=== PATIENT | female | born 1950 | race Caucasian/White ===

== ENCOUNTER 2017-03-28 16:26 | Emergency (ER) | payer OTHER ==
[2017-03-28 16:51] VITALS: BP 170/74; PULSE 100; TEMP 99.6; BMI 27.4
[2017-03-28] MEDS ORDERED: LORazepam 1 MG TABLET PO ONE (17:05)
--- NOTE | 2017-03-28 17:06 | PDOC ---
History of Present Illness - History of Present Illness Initial Comments: 03/28/17 17:19 66 F with a PMHx of chronic back pain presents to the ED with severe back pain. She reports the pain radiates down her legs. Patient reports that she had a work -related injury in 1998 and since then has had chronic back pain. She has a pain management doctor. She states the medications no longer work and she has not been able to sleep due to the pain. Her daughter states that she hallucinates due to lack of sleep. The patient is an everyday smoker. She denies chest pain, SOB. Denies nausea, vomiting, diarrhea. Current Medications: Amlodipine, Venlafaxine, Hydrocodone/Acetaminophen 7.5/325 , Methadone, Xanax <Tova Doss - Last Filed: 03/28/17 18:50> <Ivan Da Silva - Last Filed: 03/29/17 09:02> - General Chief Complaint: Chronic pain Stated Complaint: BACK PAIN Time Seen by Provider: 03/28/17 16:44 Past History <Tova Doss - Last Filed: 03/28/17 18:50> - Past Medical History GI Disorders: Yes (HIATAL HERNIA) HTN: Yes Psychiatric Problems: Yes (MOOD DISORDER) Other medical history: CHRONIC BACK PAIN, NARCOTIC & METHADONE DEPENDENT - Surgical History Appendectomy: Yes - Psycho/Social/Smoking Cessation Hx Anxiety: Yes Suicidal Ideation: No Smoking Status: No Smoking History: Current every day smoker Number of Cigarettes Smoked Daily: 5 Information on smoking cessation initiated: Yes 'Breaking Loose' booklet given: 03/28/17 Hx Alcohol Use: No Drug/Substance Use Hx: Yes (PRESCRIBED) Substance Use Type: Prescribed <Ivan Da Silva - Last Filed: 03/29/17 09:02> - Past Medical History Allergies/Adverse Reactions: Allergies Allergy/AdvReac Type Severity Reaction Status Date / Time Penicillins Allergy Rash Verified 03/28/17 16:59 Home Medications: Ambulatory Orders Amlodipine Besylate [Norvasc] 10 mg PO DAILY 10/02/11 Venlafaxine HCl [Effexor] 225 mg PO DAILY 10/02/11 Methadone HCl 100 mg PO DAILY 03/28/17 Oxycodone HCl/Acetaminophen [Percocet 5-325 mg Tablet] 1 - 2 tab PO Q4H PRN #20 tablet MDD 8 03/28/17 Review of Systems - Review of Systems Comments:: 03/28/17 17:20 CONSTITUTIONAL: Absent: fever, chills, fatigue EYES: Absent: visual changes ENT: Absent: ear pain, sore throat CARDIOVASCULAR: Absent: chest pain, palpitations RESPIRATORY: Absent: cough, SOB GI: Absent: abdominal pain, nausea, vomiting, constipation, diarrhea GENITOURINARY: Absent: dysuria, frequency, hematuria MUSCULOSKELETAL: (+) back pain. Absent: arthralgia, myalgia SKIN: Absent: rash NEURO: Absent: headache <Lauren Dossobhan A - Last Filed: 03/28/17 18:50> *Physical Exam - Vital Signs Last Vital Signs Temp Pulse Resp BP Pulse Ox 99.6 F 100 H 18 170/74 97 03/28/17 16:27 03/28/17 16:27 03/28/17 16:27 03/28/17 16:27 03/28/17 16:27 - Physical Exam Comments: 03/28/17 18:50 GENERAL: Well-appearing, well-nourished. HEENT: Normocephalic, atraumatic. PERRL, EOM intact. CARDIOVASCULAR: Normal S1, S2. Regular rate and rhythm. PULMONARY: Clear to auscultation bilaterally. ABDOMEN: Soft, non-distended, non-tender. EXTREMITIES: Normal ROM in all four extremities. No gross deformities. BACK: patient indicates that she has upper back pain, but there is no deformity , point tenderness or spasm. No sign of inflammation is present. There is no pain or deformity of the low back. Straight leg test is negative. There are no motor or sensory deficits. No loss of rectal sphincter tone. SKIN: Warm, dry. No rash NEUROLOGICAL: No focal neurological deficits. <Lauren Dossobhan A - Last Filed: 03/28/17 18:50> - Vital Signs Last Vital Signs Temp Pulse Resp BP Pulse Ox 99.6 F 100 H 18 170/74 97 03/28/17 16:27 03/28/17 16:27 03/28/17 16:27 03/28/17 16:27 03/28/17 16:27 <Ivan Da Silva - Last Filed: 03/29/17 09:02> ED Treatment Course - LABORATORY CBC & Chemistry Diagram: 03/28/17 17:20 03/28/17 17:20 <Tova Doss - Last Filed: 03/28/17 18:50> - LABORATORY CBC & Chemistry Diagram: 03/28/17 17:20 03/28/17 17:20 <Ivan Da Silva - Last Filed: 03/29/17 09:02> Medical Decision Making - Medical Decision Making 03/28/17 17:09 Attempts were made to contact PMD and pain management physician. Staff at the PMD office states that the patient has not been seen since 2016. Pain management physician was not available. Since it is clear that the patient has no recent medical attention, is a long- time smoker with a chronic cough, according to her daughter, chest x-ray and routine lab work will be obtained. An attempt will be made to ameliorate her pain and anxiety with medication. Chest x-ray shows a large hiatal hernia, with suboptimal visualization of the left base. Otherwise the lung otoole are clear CBC and chemistries without significant abnormalities The patient was treated with oral oxycodone and Ativan. She obviously is tolerant of narcotics, due to methadone maintenance and chronic usage. She still complains of severe pain. Dilaudid was administered. This seemed to improve her pain. Discharge with her daughter, with instructions to follow-up with a sensor specialist for baseline evaluation due to her chronic smoking history. She will also follow up with her pain management physician and primary physician Dr. Moore. Patient is ambulatory and pain is improved with discharge in the company of her daughter <Ivan Da Silva - Last Filed: 03/29/17 09:02> *DC/Admit/Observation/Transfer - Attestations Scribe Attestion: 03/28/17 17:21 Documentation prepared by Tova Doss, acting as biomedical service engineer for Ivan Oneill MD. <Tova Doss - Last Filed: 03/28/17 18:50> - Discharge Dispostion Admit: No <Ivan Da Silva - Last Filed: 03/29/17 09:02> Diagnosis at time of Disposition: Chronic back pain Qualifiers: Back pain location: back pain in unspecified location Back pain laterality: unspecified Qualified Code(s): M54.9 - Dorsalgia, unspecified - Discharge Dispostion Disposition: HOME Condition at time of disposition: Good - Prescriptions Prescriptions: Oxycodone HCl/Acetaminophen [Percocet 5-325 mg Tablet] 1 - 2 tab PO Q4H PRN #20 tablet MDD 8 PRN Reason: Severe Pain - Referrals Referrals: Matt Moore MD [Primary Care Provider] - 3 days Lui Mosley MD [Staff Physician] - 3 days Kuldeep Jamison MD [Staff Physician] - 14 days - Patient Instructions Printed Discharge Instructions: Thoracic Back Pain Additional Instructions: Your lab work and chest x-ray did not show anything specific, but since she or a smoker with a chronic cough, it is recommended that you see a sensor specialist within the next 1-2 weeks for further evaluation and treatment..
[2017-03-28] MEDS ORDERED: LORazepam 0.5 MG TABLET ONE (17:08)
[2017-03-28 17:30] LABS: BASOPHIL 0.3 % (0-2.0); EOSINOPHIL 1.5 % (0-4.5); MCH 29.7 pg (25.7-33.7); MCHC 35.1 g/dl (32.0-36.0); MEAN CELL VOLUME 84.6 fl (80-96); MEAN PLT VOLUME 7.5 fl (7.5-11.1); NEUTROPHILS 64.2 % (42.8-82.8); PLATELET COUNT 273 K/MM3 (134-434); RDW 13.6 % (11.6-15.6); WHITE BLOOD COUNT 9.1 K/mm3 (4.0-10.8)
[2017-03-28 17:43] LABS: ALBUMIN 3.3 g/dl (3.5-5.0); ALK PHOS 106 U/L (32-92); ANION GAP 5 (8-16); CALCIUM 8.8 mg/dl (8.4-10.2); CO2 29 mmol/L (22-28); CREATININE 0.5 mg/dl (0.6-1.3); GLUCOSE,RANDOM 77 mg/dl (74-106); SGOT/AST 16 U/L (10-42); SGPT/ALT 13 U/L (10-40); TOT PROT 6.5 g/dl (6.4-8.3)
[2017-03-28 18:03] LABS: BILIRUBIN,TOTAL < 0.3 mg/dl (0.2-1.0)
[2017-03-28] MEDS ORDERED: HYDROmorphone HCL CARPU-JECT 1 MG/1 ML DISP.SYRIN IM ONE (18:24)
[2017-03-28] MEDS ORDERED: HYDROmorphone HCL CARPU-JECT 1 MG/1 ML DISP.SYRIN ONE (18:26)
== END 2017-03-28 22:10 | disposition home or self-care (01) ==
LOC: FER 16:26
PROC: 3E033NZ Introduction of Analgesics, Hypnotics, Sedatives into Peripheral Vein, Percutaneous Approach (ICD-10-PCS; principal; 2017-03-28)
DX: M54.9 Dorsalgia, unspecified (principal); F17.210 Nicotine dependence, cigarettes, uncomplicated; I10 Essential (primary) hypertension; G89.29 Other chronic pain; F39 Unspecified mood [affective] disorder
CPT/HCPCS: 36415; 71010-TC; 80053; 85025; 96372; 99282-25